=== PATIENT | male | born 1960 | race Caucasian/White ===

== ENCOUNTER 2024-10-26 16:51 | Emergency (ER) | payer BC, OTHER ==
[~2024-10-26] VITALS: Ht 172.7 cm; Wt 88.0 kg
[2024-10-26 16:56] VITALS: O2SAT 99
[2024-10-26 17:45] LABS: HEMATOCRIT. 40.4 % (42.0-52.0); HEMOGLOBIN. 14.2 g/dL (14.0-18.0); MEAN PLATELET VOLUME 8.6 fl (7.4-10.4); PLATELET 223 x1000/uL (130-400); RED BLOOD CELL COUNT 4.29 mill/uL (4.7-6.1); RED CELL DISTRIBUTION WIDTH 13.2 % (11.6-14.6)
[2024-10-26 17:57] LABS: CREATININE 1.1 mg/dL (0.6-1.3); TROPONIN I HIGH SENSITIVITY 8 ng/L (3.0-53); UREA NITROGEN BLOOD 9 mg/dL (9-23)
[2024-10-26 17:59] LABS: ASPARTATE AMINOTRANSFERASE 18 IU/L (<34); BILIRUBIN DIRECT 0.3 mg/dL (<=3.0); BILIRUBIN TOTAL 0.9 mg/dL (0.1-1.0); PROTEIN TOTAL 7.2 g/dL (6.0-8.3)
[2024-10-26 18:26] LABS: LYMPHOCYTES % MANUAL 27.0 % (20.0-50.0); MONOCYTES % MANUAL 16.0 % (2.0-8.0); NEUTROPHILS % MANUAL 57.0 % (45.0-75.0)
[2024-10-26 18:27] LABS: PLATELET ESTIMATE NORMAL
[2024-10-26] MEDS: IBUPROFEN 800MG TABLET PO ONE (19:44)
[2024-10-26 19:53] VITALS: TEMP 37.2; O2SAT 100
[2024-10-26 20:00] VITALS: BP 174/91; PULSE 85; RESP 14
[2024-10-26] MEDS: TRAMADOL 50MG TABLET PO ONE (20:00)
[2024-10-26 20:30] LABS: TROPONIN I HIGH SENSITIVITY 9 ng/L (3.0-53)
== END 2024-10-26 21:11 | disposition left against medical advice (07) ==
LOC: ER 16:51 → CMPBEDREQ 23:24
DX: I20.0 Unstable angina (principal); E87.6 Hypokalemia; E11.65 Type 2 diabetes mellitus with hyperglycemia; I10 Essential (primary) hypertension; I67.82 Cerebral ischemia; Z88.5 Allergy status to narcotic agent
CPT/HCPCS: 36415; 71045; 80048; 80076; 84484; 85025; 93005; 99285